=== PATIENT | male | born 1955 | race Caucasian/White ===

== ENCOUNTER 2018-11-28 20:03 | Emergency (ER) | payer BC ==
[2018-11-28 20:17] LABS: URINE APPEARANCE CLEAR; URINE BILIRUBIN NEGATIVE (NEGATIVE); URINE BLOOD TRACE-I (NEGATIVE); URINE COLOR YELLOW; URINE GLUCOSE (UA) NEGATIVE (NEGATIVE); URINE KETONE NEGATIVE (NEGATIVE); URINE LEUKOCYTE ESTERASE NEGATIVE (NEGATIVE); URINE NITRITE NEGATIVE (NEGATIVE); URINE PROTEIN NEGATIVE (NEGATIVE); URINE UROBILINOGEN 0.2 E.U./dL (0.20 - 1.00)
[2018-11-28 20:29] LABS: URINE RBC 0 - 2 (NONE SEEN)
[2018-11-28 20:30] LABS: URINE EPITHELIAL CELLS NONE SEEN (FEW); URINE WBC NONE SEEN (0-2/hpf)
[2018-11-28] MEDS ORDERED: 0.9 % SODIUM CHLORIDE 1,000 ML BAG IV ONE (20:32)
--- NOTE | 2018-11-28 20:32 | Emergency Department Record ---
History of Present Illness - General Chief Complaint: Abdominal Pain Stated Complaint: SIDE PAIN Time Seen by Provider: 11/28/18 20:27 Source: Patient Mode of Arrival: Wheelchair Limitations: No limitations - History of Present Illness Initial Comments: pt brought over from [facility] because of llq pain that started at 4am. it has contd to hurt. it hurts more to walk. he has never had anything like that before. no n/v/c/d MD Complaint: Abdominal pain Onset/Timin -: Hour(s) Location: LLQ Radiation: None Severity scale (1-10): 4 Quality: Cramping Improves With: Rest Worsens With: Movement Associated Symptoms: Denies other symptoms - Related Data Home Medications Medication Instructions Recorded Confirmed Last Taken Atorvastatin Calcium [Lipitor] 40 mg PO QPM 11/28/18 11/28/18 Unknown Previous Rx's Medication Instructions Recorded Ciprofloxacin HCl [Cipro] 500 mg PO Q12HR #20 tablet 11/29/18 Docusate Sodium [Colace] 100 mg PO QHS PRN #30 cap 11/29/18 Metronidazole [Flagyl] 500 mg PO Q8HR #30 tablet 11/29/18 Allergies Allergy/AdvReac Type Severity Reaction Status Date / Time hydrocodone bitartrate AdvReac HYPERSENSIT Verified 11/28/18 20:15 [From Vicodin] IVITY Travel Screening - Travel/Exposure Within Last 30 Days Have you traveled within the last 30 days?: No - Travel Symptoms Symptom Screening: None Review of Systems Reviewed: No additional complaints except as noted below Constitutional: Reports: As per HPI. Denies: Chills, Fever, Malaise, Night sweats, Weakness, Weight change Eyes: Reports: As per HPI. Denies: Eye discharge, Eye pain, Photophobia, Vision change ENT: Reports: As per HPI. Denies: Congestion, Dental pain, Ear pain, Epistaxis , Hearing loss, Throat pain Respiratory: Reports: As per HPI. Denies: Cough, Dyspnea, Hemoptysis, Stridor, Wheezes Cardiovascular: Reports: As per HPI. Denies: Arrhythmia, Chest pain, Dyspnea on exertion, Edema, Murmurs, Orthopnea, Palpitations, Paroxysmal nocturnal dyspnea, Rheumatic Fever, Syncope Endocrine: Reports: As per HPI. Denies: Fatigue, Heat or cold intolerance, Polydipsia, Polyuria Gastrointestinal: Reports: As per HPI. Denies: Abdominal pain, Constipation, Diarrhea, Hematemesis, Hematochezia, Melena, Nausea, Vomiting Genitourinary: Reports: As per HPI. Denies: Dysuria, Frequency, Hematuria, Incontinence, Retention, Testicular pain, Testicular mass, Urgency Musculoskeletal: Reports: As per HPI. Denies: Arthralgia, Back pain, Gout, Joint swelling, Myalgia, Neck pain Skin: Reports: As per HPI. Denies: Bruising, Change in color, Change in hair/ nails, Lesions, Pruritus, Rash Neurological: Reports: As per HPI. Denies: Abnormal gait, Confusion, Headache, Numbness, Paresthesias, Seizure, Tingling, Tremors, Vertigo, Weakness Psychiatric: Reports: As per HPI. Denies: Anxiety, Auditory hallucinations, Depression, Homicidal thoughts, Suicidal thoughts, Visual hallucinations Hematological/Lymphatic: Reports: As per HPI. Denies: Anemia, Blood Clots, Easy bleeding, Easy bruising, Swollen glands Past Medical History - SOCIAL HISTORY Smoking Status: Never smoker - RESPIRATORY Hx Respiratory Disorders: No - CARDIOVASCULAR Hx Cardio Disorders: Yes Hx Hypertension: Yes Comment:: high cholesterol - NEURO Hx Neuro Disorders: No - GI Hx GI Disorders: No - Hx Genitourinary Disorders: No - ENDOCRINE Hx Endocrine Disorders: No - MUSCULOSKELETAL Hx Musculoskeletal Disorders: No - PSYCH Hx Psych Problems: No - HEMATOLOGY/ONCOLOGY Hx Hematology/Oncology Disorders: Yes Hx Cancer: Yes ([place]) Hx Chemotherapy: No Hx Radiation Therapy: No Family Medical History Any Significant Family History?: Yes Family Hx Comment (NOT TO BE USED IN PLACE OF ITEMS BELOW): Sister w/MS Hx Cancer: Brother/Sister Hx Diabetes: Mother, Brother/Sister Hx HTN: Father, Brother/Sister Physical Exam - General General Appearance: Alert, Oriented x3, Cooperative, Mild distress - Head Head exam: Normal inspection - Eye Eye exam: Normal appearance, PERRL, EOMI Pupils: Normal accommodation - ENT ENT exam: Normal exam, Mucous membranes moist, Normal external ear exam, Normal orophraynx Ear exam: Normal external inspection. negative: External canal tenderness Nasal Exam: Normal inspection. negative: Discharge, Sinus tenderness Mouth exam: Normal external inspection, Tongue normal Teeth exam: Normal inspection. negative: Dental caries Throat exam: Normal inspection. negative: Tonsillar erythema, Tonsillar exudate - Neck Neck exam: Normal inspection, Full ROM. negative: Tenderness - Respiratory Respiratory exam: Normal lung sounds bilaterally. negative: Respiratory distress - Cardiovascular Cardiovascular Exam: Regular rate, Normal rhythm, Normal heart sounds - GI/Abdominal GI/Abdominal exam: Soft, Normal bowel sounds, Tenderness (llq) - Rectal Rectal exam: Deferred - exam: Deferred - Extremities Extremities exam: Normal inspection, Full ROM, Normal capillary refill. negative: Tenderness - Back Back exam: Reports: Normal inspection, Full ROM. Denies: Muscle spasm, Rash noted, Tenderness - Neurological Neurological exam: Alert, CN II-XII intact, Normal gait, Oriented X3 - Psychiatric Psychiatric exam: Normal affect, Normal mood - Skin Skin exam: Dry, Intact, Normal color, Warm Course Vital Signs 11/28/18 20:06 Temperature 98.1 F Pulse Rate 85 Respiratory 16 Rate Blood Pressure 141/91 Pulse Ox 94 L - Reevaluation(s) Reevaluation #1: 11/29/18 00:23 pt not requiring pain med. Medical Decision Making - Lab Data Result diagrams: 11/28/18 20:10 11/28/18 20:10 Lab Results 11/28/18 Range/Units Unknown Urine Color Yellow Urine Appearance Clear Urine pH 6.0 (5.0-8.0) Ur Specific Dexter >= 1.030 (1.002-1.030) Urine Protein Negative (NEGATIVE) Urine Glucose (UA) Negative (NEGATIVE) Urine Ketones Negative (NEGATIVE) Urine Blood Trace-i (NEGATIVE) Urine Nitrite Negative (NEGATIVE) Urine Bilirubin Negative (NEGATIVE) Urine Urobilinogen 0.2 (0.20 - 1.00) E.U./dL Ur Leukocyte Esterase Negative (NEGATIVE) Urine RBC 0 - 2 (NONE SEEN) Urine WBC None seen (0-2/hpf) Ur Epithelial Cells None seen (FEW) Disposition Disposition: Discharge Clinical Impression: Diverticulitis Disposition: Home, Self-Care Condition: (1) Good Instructions: Diverticulitis (ED) Additional Instructions: follow up with family doctor this week. return sooner if worse. have repeat ct or mri of liver in 6 months. push fluids Prescriptions: Docusate Sodium [Colace] 100 mg PO QHS PRN #30 cap PRN Reason: Constipation Metronidazole [Flagyl] 500 mg PO Q8HR #30 tablet Ciprofloxacin HCl [Cipro] 500 mg PO Q12HR #20 tablet Forms: Patient Portal Access Quality - Quality Measures Quality Measures: N/A - Blood Pressure Screening Does Patient Have Any of the Following: No Blood Pressure Classification: Hypertensive Reading Systolic Measurement: 141 Diastolic Measurement: 91 Screening for High Blood Pressure: < First Hypertensive BP, F/U Documented > [ G8950] First Hypertensive Follow-up Interventions: Follow-up with rescreen GT 1 day and LT 4 weeks.
[2018-11-28 20:41] LABS: BASO % 0.2 % (0-6); GRAN % 62.2 % (47-80); HEMATOCRIT 45.9 % (42.0-52.0); HEMOGLOBIN 15.2 gm/dl (14.0-18.0); LYMPH % 25.4 % (16-45); MEAN CELL VOLUME 90.9 fl (81-97); MEAN CORPUSCULAR HEMOGLOBIN 30.1 pg (27-33); MEAN CORPUSCULAR HGB CONC 33.1 g/dl (32-36); MEAN PLATELET VOLUME 10.1 fl (7.4-10.4); MONO % 11.2 % (0-9); PLATELET COUNT 349 K/uL (130-400); RED BLOOD COUNT 5.05 M/uL (4.40-5.70); RED CELL DISTRIBUTION WIDTH 13.9 % (11.5-14.5); WHITE BLOOD COUNT W/O DIFF 10.3 K/uL (4.2-12.2)
[2018-11-28 20:49] LABS: BLOOD UREA NITROGEN 19 mg/dL (8-23); CREATININE 0.9 mg/dL (0.7-1.2); EST GLOMERULAR FILTRATION RATE > 60 mL/min
[2018-11-28 20:50] LABS: TOTAL PROTEIN 7.7 g/dL (6.6-8.7)
[2018-11-28 20:52] LABS: GLUCOSE,RANDOM 115 mg/dL (74-109)
[2018-11-28 20:54] LABS: ALBUMIN 4.3 g/dL (4.0-5.0); ALKALINE PHOSPHATASE 79 U/L (55-149); ALT/SGPT 33 U/L (<41); AST/SGOT 24 U/L (10.0-50.0); LIPASE 47 U/L (13-60)
[2018-11-28 20:56] LABS: BILIRUBIN,DIRECT < 0.2 mg/dL (0-0.3)
[2018-11-29] MEDS ORDERED: METRONIDAZOLE IVPB 500 MG/100 ML BAG IVPB ONE (00:12)
[2018-11-29] MEDS ORDERED: CIPROFLOXACIN LACTATE/D5W 400 MG/200 ML BAG IVPB ONE (00:12)
[2018-11-29] MEDS ORDERED: METRONIDAZOLE 250 MG TABLET PO ONE (00:22)
--- NOTE | 2018-11-30 18:53 | CT SCAN REPORT ---
EXAM: CT SCAN ABDOMEN/PELVIS W CONTRAST HISTORY: ABDOMINAL PAIN FOR ONE DAY. TECHNIQUE: CT of the abdomen and pelvis with Omnipaque-300 intravenous contrast. Oral contrast also provided. COMPARISON: None. FINDINGS: Atelectasis and/or scarring in both lung bases. Multiple subcentimeter low-attenuation hepatic lesions are noted. Unremarkable appearance of the gallbladder, adrenal glands, and spleen. Symmetric renal perfusion. No hydronephrosis. Small bilateral low-attention renal cortical lesions, too small to further characterize but likely representing cysts. Unremarkable appearance of the pancreas. No evidence of abdominal aorta aneurysm or dissection. Colonic diverticulosis. Descending colon diverticula with focal inflammatory changes in the mid/distal descending colon region consistent with acute diverticulitis. No associated fluid collection. No free air. Oral contrast material reaches the mid transverse colon. Nonvisualization of the appendix. Small bowel loops are nondilated. Unremarkable appearance of the urinary bladder. Coarse calcification within the prostate. Mild endplate depression superiorly at the T12 vertebral body. Bilateral sacroiliac joint arthrosis with bridging anterior osteophytes. IMPRESSION: 1. ACUTE UNCOMPLICATED DIVERTICULITIS OF THE MID DESCENDING COLON. 2. INDETERMINATE SUBCENTIMETER LOW-ATTENUATION LESIONS OF THE LIVER, STATISTICALLY LIKELY TO REPRESENT CYSTS OR HEMANGIOMAS IN THE ABSENCE OF KNOWN PRIMARY MALIGNANCY. IF THERE IS AVAILABLE PRIOR OUTSIDE IMAGING, COMPARISON MAY BE OF BENEFIT TO ESTABLISH STABILITY. 3. LIKELY SMALL BILATERAL RENAL CYSTS. 4. ADDITIONAL INCIDENTAL AND CHRONIC FINDINGS DESCRIBED IN THE BODY OF THE REPORT. JOB NUMBER: [id number] MTDD
== END 2018-11-29 01:42 | disposition home or self-care (01) ==
LOC: ER 20:03
DX: K57.92 Diverticulitis of intestine, part unspecified, without perforation or abscess without bleeding (principal); I10 Essential (primary) hypertension
CPT/HCPCS: 99284 ×2; 96365; 83690; 85025; 80076; 80048; 81001; 74177; Q9967; J0744; J7030

== ENCOUNTER 2019-03-19 07:00 | Day surgery (SDC) | payer BC ==
[2019-03-19] MEDS ORDERED: LIDOCAINE 2% MDV (20MG/ML) 20ML VIAL IV ONE (07:01)
[2019-03-19] MEDS ORDERED: PROPOFOL 10 MG/ML VIAL IV ONE (07:01)
--- NOTE | 2019-03-19 17:50 | Operative Note ---
DATE OF SURGERY: 03/19/2019 PREOPERATIVE DIAGNOSIS: History of appendiceal carcinoma. POSTOPERATIVE DIAGNOSES: 1. Sigmoid diverticulosis. 2. Normal-appearing ileocolonic anastomosis. PROCEDURE: After informed consent was obtained from the patient, he was placed in the left lateral decubitus position in the endoscopy suite, sedated and monitored by the department of anesthesia. Digital rectal examination was unremarkable. A well-lubricated [id number] colonoscope was inserted into the rectum and advanced to the cecum. Preparation quality was excellent. The neocecum involved an ileocolonic anastomosis which appeared unremarkable. The remaining ascending colon, transverse colon, and descending colon were unremarkable as well. No polyps, mass lesions, or inflammation was seen. The sigmoid colon demonstrated mild diverticular changes. No inflammation, polyps, or mass lesions were seen. The rectum was unremarkable in forward and in J-turn views. The endoscope was straightened, the rectal ampulla deflated, and the endoscope was removed. RECOMMENDATIONS: The patient should follow a high-fiber diet. I would recommend a repeat colonoscopy in 3 years based on his history. As always, thank you for allowing me to participate in the healthcare of your patients. CC: SOUMYA Martinez
== END 2019-03-19 08:55 | disposition home or self-care (01) ==
LOC: HOP 07:00
PROVIDERS: ATTEND Internal Medicine Gastroenterology
DX: Z85.09 Personal history of malignant neoplasm of other digestive organs (principal); K57.30 Diverticulosis of large intestine without perforation or abscess without bleeding; I10 Essential (primary) hypertension; E78.00 Pure hypercholesterolemia, unspecified

== ENCOUNTER 2019-12-04 12:51 | Emergency (ER) | payer BC ==
[2019-12-04] MEDS ORDERED: KETOROLAC 30 MG/ML VIAL IM ONE (13:23)
[2019-12-04] MEDS ORDERED: ORPHENADRINE CITRATE 60MG/2ML VIAL IM ONE (13:23)
--- NOTE | 2019-12-04 14:42 | RADIOLOGY REPORT ---
EXAMINATION: LUMBAR SPINE W/OBLIQUES, SACRUM COCCYX EXAM DATE: 12/04/2019 2:13 PM TECHNIQUE: AP, lateral and oblique lumbar spine images. AP and lateral images of the sacrococcyx. INDICATION: injury COMPARISON: CT 11/28/2018 ENCOUNTER: Initial FINDINGS: Mild to moderate L1 compression fracture deformity without retropulsion. New since 11/28/2018. Mild superior and inferior L2 endplate deformities, unchanged. T12 superior endplate deformity, uncha nged. Anterior posterior alignment preserved. Mild spurring at the pubic symphysis. No discernible sacral fracture line. IMPRESSION: 1. New L1 compression fracture deformity, mild to moderate since 11/28/2018. 2. L2 and T12 endplate deformities, chronic. 3. No discernible sacral fracture. >> Dictated by: José Antonio Hamilton MD on 12/04/2019 2:27 PM. .
[2019-12-04] MEDS ORDERED: HYDROMORPHONE HCL 2 MG/ML VIAL IM ONE (14:50)
--- NOTE | 2019-12-04 15:47 | CT SCAN REPORT ---
EXAMINATION: CT Lumbar Spine without Contrast EXAM DATE: 12/04/2019 3:32 PM TECHNIQUE: Standard protocol CT images were performed of the lumbar spine without contrast. Sagittal and coronal 2-D images were reconstructed. INDICATION: fall, new compression fx COMPARISON: CT of the abdomen and pelvis 11/28/2018 ENCOUNTER: Not applicable FINDINGS: A mild chronic compression fracture of the superior endplate of the T12 vertebral body demonstrates 2 5% height loss centrally. No focal kyphosis or retropulsion. A mild acute fracture of the L1 vertebral body superior endplate demonstrates 25% height loss anterio rly. No focal kyphosis or retropulsion. Subtle central height loss of the superior endplate of the L2 vertebral body is chronic. No focal kyp hosis or retropulsion. The vertebral bodies otherwise demonstrate normal height and alignment. Degenerative changes partiall y fusing the bilateral sacroiliac joints are noted. No significant central canal or foraminal stenosis is demonstrated in the lumbar spine IMPRESSION: 1. Mild acute L1 vertebral body compression fracture. 2. Mild chronic T12 vertebral body compression fracture and subtle chronic mild height loss of the L2 vertebral superior endplate centrally. 3. No significant central canal or foraminal stenosis Dictated by: SABINA SALINAS MD on 12/04/2019 3:34 PM. .
--- NOTE | 2019-12-04 16:28 | Emergency Department Record ---
History of Present Illness - General Chief Complaint: Fall Injury Stated Complaint: FALL INJURY Time Seen by Provider: 12/04/19 13:18 Source: Patient Mode of Arrival: Ambulatory Limitations: No limitations - History of Present Illness Initial Comments: pt fell 3 steps last night landing on his l buttock. he is c/o pain in his mid to lower back. he has no numbness or difficulty with bladder or bowels. MD Complaint: Fall Onset/Timin -: Days(s) Fall From: Standing When Fall Occurred: 24 hours FORECLOSURE [place] Fall Witnessed: No Place Fall Occurred: Home Loss of Consciousness: None Prolonged Down Time?: No Symptoms Prior to Fall: None Location: Back Severity: Moderate Severity scale (1-10): 8 Quality: Aching, Sharp Context: Tripped/slipped Associated Symptoms: Denies - [place] Coma Scale Eye Response: (4) Open spontaneously Motor Response: (6) Obeys commands Verbal Response: (5) Oriented [place] Total: 15 - Related Data Previous Rx's Medication Instructions Recorded Cyclobenzaprine HCl [Flexeril] 10 mg PO TID #14 tablet 12/04/19 Oxycodone HCl/Acetaminophen 1 tab PO Q6H PRN #12 tab 12/04/19 [Percocet 5mg/325mg] Allergies Allergy/AdvReac Type Severity Reaction Status Date / Time hydrocodone bitartrate AdvReac HYPERSENSIT Unverified 06/22/19 18:42 [From Vicodin] IVITY Travel Screening - Travel/Exposure Within Last 30 Days Have you traveled within the last 30 days?: No Review of Systems Reviewed: No additional complaints except as noted below Constitutional: Reports: As per HPI. Denies: Chills, Fever, Malaise, Night sweats, Weakness, Weight change Eyes: Reports: As per HPI. Denies: Eye discharge, Eye pain, Photophobia, Vision change ENT: Reports: As per HPI. Denies: Congestion, Dental pain, Ear pain, Epistaxis, Hearing loss, Throat pain Respiratory: Reports: As per HPI. Denies: Cough, Dyspnea, Hemoptysis, Stridor, Wheezes Cardiovascular: Reports: As per HPI. Denies: Arrhythmia, Chest pain, Dyspnea on exertion, Edema, Murmurs, Orthopnea, Palpitations, Paroxysmal nocturnal dyspnea, Rheumatic Fever, Syncope Endocrine: Reports: As per HPI. Denies: Fatigue, Heat or cold intolerance, Polydipsia, Polyuria Gastrointestinal: Reports: As per HPI. Denies: Abdominal pain, Constipation, Diarrhea, Hematemesis, Hematochezia, Melena, Nausea, Vomiting Genitourinary: Reports: As per HPI. Denies: Dysuria, Frequency, Hematuria, Incontinence, Retention, Testicular pain, Testicular mass, Urgency Musculoskeletal: Reports: As per HPI. Denies: Arthralgia, Back pain, Gout, Joint swelling, Myalgia, Neck pain Skin: Reports: As per HPI. Denies: Bruising, Change in color, Change in hair/nails, Lesions, Pruritus, Rash Neurological: Reports: As per HPI. Denies: Abnormal gait, Confusion, Headache, Numbness, Paresthesias, Seizure, Tingling, Tremors, Vertigo, Weakness Psychiatric: Reports: As per HPI. Denies: Anxiety, Auditory hallucinations, Depression, Homicidal thoughts, Suicidal thoughts, Visual hallucinations Hematological/Lymphatic: Reports: As per HPI. Denies: Anemia, Blood Clots, Easy bleeding, Easy bruising, Swollen glands Past Medical History - SOCIAL HISTORY Smoking Status: Never smoker - RESPIRATORY Hx Respiratory Disorders: No - CARDIOVASCULAR Hx Cardio Disorders: Yes Hx Abnormal EKG: No Hx Deep Vein Thrombosis: No Hx Hypertension: Yes Hx Irregular Heartbeat: No - NEURO Hx Neuro Disorders: No - GI Hx GI Disorders: Yes Hx Diverticulitis: Yes - Hx Genitourinary Disorders: No - ENDOCRINE Hx Endocrine Disorders: No - MUSCULOSKELETAL Hx Musculoskeletal Disorders: Yes Hx Arthritis: Yes - PSYCH Hx Psych Problems: No - HEMATOLOGY/ONCOLOGY Hx Hematology/Oncology Disorders: Yes Hx Anemia: No Hx Blood Disorders: No Hx Cancer: Yes Hx Chemotherapy: No Hx Radiation Therapy: No Hx Blood Transfusions: No Comment:: Appendix Cancer around 2011 Family Medical History Any Significant Family History?: Yes Family Hx Comment (NOT TO BE USED IN PLACE OF ITEMS BELOW): Sister w/MS Hx Cancer: Brother/Sister Hx Diabetes: Mother, Brother/Sister Hx HTN: Father, Brother/Sister Physical Exam - General General Appearance: Alert, Oriented x3, Cooperative, Mild distress - Head Head exam: Normal inspection - Eye Eye exam: Normal appearance, PERRL, EOMI Pupils: Normal accommodation - ENT ENT exam: Normal exam, Mucous membranes moist, Normal external ear exam, Normal orophraynx Ear exam: Normal external inspection. negative: External canal tenderness Nasal Exam: Normal inspection. negative: Discharge, Sinus tenderness Mouth exam: Normal external inspection, Tongue normal Teeth exam: Normal inspection. negative: Dental caries Throat exam: Normal inspection. negative: Tonsillar erythema, Tonsillar exudate - Neck Neck exam: Normal inspection, Full ROM. negative: Tenderness - Respiratory Respiratory exam: Normal lung sounds bilaterally. negative: Respiratory distress - Cardiovascular Cardiovascular Exam: Regular rate, Normal rhythm, Normal heart sounds - GI/Abdominal GI/Abdominal exam: Soft, Normal bowel sounds. negative: Tenderness - Rectal Rectal exam: Deferred - exam: Deferred - Extremities Extremities exam: Normal inspection, Full ROM, Normal capillary refill. negative: Tenderness - Back Back exam: Reports: Muscle spasm, Paraspinal tenderness, Tenderness, Vertebral tenderness. Denies: Full ROM, Rash noted - Neurological Neurological exam: Alert, CN II-XII intact, Normal gait, Oriented X3 - Psychiatric Psychiatric exam: Normal affect, Normal mood - Skin Skin exam: Dry, Intact, Normal color, Warm Course Vital Signs 12/04/19 13:03 Temperature 97.8 F Pulse Rate 73 Respiratory 20 Rate Blood Pressure 135/90 Pulse Ox 94 L - Reevaluation(s) Reevaluation #1: 12/04/19 16:27 pt has acute L1 compression fracture, 25%. d/w mayi gonzalez and possibility of needing a clamshell brace Disposition Disposition: Discharge Clinical Impression: Compression fracture Disposition: Home, Self-Care Condition: (1) Good Instructions: Vertebral Compression Fracture (ED) Additional Instructions: follow up with Zehra Gonzalez next week. return sooner if worse. use ice and moist heat. avoid lifting more then 10lbs and vibrating machinery till cleared by zehra. Prescriptions: Cyclobenzaprine HCl [Flexeril] 10 mg PO TID #14 tablet Oxycodone HCl/Acetaminophen [Percocet 5mg/325mg] 1 tab PO Q6H PRN #12 tab PRN Reason: Pain - Mod To Severe (5-10) Quality - Quality Measures Quality Measures: N/A - Blood Pressure Screening Does Patient Have Any of the Following: No Blood Pressure Classification: Hypertensive Reading Systolic Measurement: 135 Diastolic Measurement: 90 Screening for High Blood Pressure: < First Hypertensive BP, F/U Documented > [G8950] First Hypertensive Follow-up Interventions: Follow-up with rescreen GT 1 day and LT 4 weeks.
== END 2019-12-04 16:50 | disposition home or self-care (01) ==
LOC: ER 12:51
DX: S32.019A Unspecified fracture of first lumbar vertebra, initial encounter for closed fracture (principal); W01.198A Fall on same level from slipping, tripping and stumbling with subsequent striking against other object, initial encounter; Y92.009 Unspecified place in unspecified non-institutional (private) residence as the place of occurrence of the external cause; I10 Essential (primary) hypertension
CPT/HCPCS: 99284 ×2; 96372; 72110; 72220; 72131; J1885; J1170; J2360